=== PATIENT | male | born 1975 | race Caucasian/White ===

== ENCOUNTER 2019-03-22 23:15 | Emergency (ER) | payer BC ==
[2019-03-22 23:55] VITALS: BP 110/62
== END 2019-03-23 00:01 | disposition left against medical advice (07) ==
LOC: ER 23:15
DX: Z53.21 Procedure and treatment not carried out due to patient leaving prior to being seen by health care provider (principal)

== ENCOUNTER 2020-08-02 10:59 | Emergency (ER) | payer SELFPAY ==
--- NOTE | 2020-08-02 12:03 | ER Document Report ---
ED Medical Screen (RME) - General Chief Complaint: Upper Abdominal Pain Stated Complaint: ABDOMIAL PAIN Time Seen by Provider: 08/02/20 11:59 Primary Care Provider: REY PAUL MD [Primary Care Provider] - Follow up as needed Mode of Arrival: Ambulatory Information source: Patient Notes: 45-year-old male presented to ED for upper abdominal pain just above the umbilicus he states it started about 3 AM this morning. He states that the pain comes in waves. He states when the pain is bad he cannot even get up. He states he wanted to check the mail this morning and the wave hit him and he could not even get up off the ground to come back in the house until the way fast. He states he started to get another wave of pain right now. We will get blood urine and have him seen by a provider. I will also get a belly x-ray until they determine if they need a CAT scan. Denies any nausea at this time. Abdomen soft nontender to palpation pelvis sounds active I have greeted and performed a rapid initial assessment of this patient. A comprehensive ED assessment and evaluation of the patient, analysis of test results and completion of medical decision making process will be conducted by an additional ED providers. TRAVEL OUTSIDE OF THE [place] IN LAST 30 DAYS: No - Related Data Allergies/Adverse Reactions: No Known Allergies Allergy (Verified 03/22/19 23:50) Past Medical History Past Surgical History: Reports: Hx Orthopedic Surgery - Immunizations Hx Diphtheria, Pertussis, Tetanus Vaccination: Yes Physical Exam - Vital signs Vitals: Temp Pulse Resp BP Pulse Ox 98.2 F 93 18 135/77 H 100 08/02/20 11:37 08/02/20 11:37 08/02/20 11:37 08/02/20 11:37 08/02/20 11:37 Course - Vital Signs Vital signs: Temp Pulse Resp BP Pulse Ox 98.2 F 93 18 135/77 H 100 08/02/20 11:37 08/02/20 11:37 08/02/20 11:37 08/02/20 11:37 08/02/20 11:37 Doctor's Discharge - Discharge Referrals: REY PAUL MD [Primary Care Provider] - Follow up as needed
[2020-08-02 12:40] LABS: ABSOLUTE LYMPHOCYTES (AUTO) 0.8 10^3/uL (0.5-4.7); ABSOLUTE MONOCYTES (AUTO) 0.6 10^3/uL (0.1-1.4); ABSOLUTE NEUT (AUTO) 7.6 10^3/uL (1.7-8.2); BASOPHILS % (AUTO) 0.4 % (0-2); EOSINOPHILS % (AUTO) 0.1 % (0-6); HEMATOCRIT 44.2 % (37.9-51.0); HEMOGLOBIN 15.1 g/dL (13.5-17.0); LYMPHOCYTES % (AUTO) 9.2 % (13-45); MEAN CORPUSCULAR HEMOGLOBIN 32.2 pg (27.0-33.4); MEAN CORPUSCULAR HGB CONC 34.3 g/dL (32.0-36.0); MEAN CORPUSCULAR VOLUME 94 fl (80-97); MONOCYTES % (AUTO) 6.8 % (3-13); PLATELET COUNT 196 10^3/uL (150-450); SEGMENTED NEUTROPHILS % (AUTO) 83.5 % (42-78); TOTAL CELLS COUNTED % (AUTO) 100 %; WHITE BLOOD COUNT 9.1 10^3/uL (4.0-10.5)
[2020-08-02 12:45] LABS: APPEARANCE,URINE CLEAR; BILIRUBIN,URINE NEGATIVE (NEGATIVE); COLOR,URINE YELLOW; GLUCOSE, URINE NEGATIVE (NEGATIVE); KETONES,URINE NEGATIVE (NEGATIVE); LEUKOCYTE ESTERASE,URINE NEGATIVE (NEGATIVE); NITRITE,URINE NEGATIVE (NEGATIVE); PROTEIN,URINE NEGATIVE (NEGATIVE); URINE SPECIFIC GRAVITY 1.018; UROBILINOGEN,URINE NEGATIVE mg/dL (<2.0)
[2020-08-02 12:59] LABS: ALBUMIN 4.4 g/dL (3.5-5.0); ALKALINE PHOSPHATASE 39 U/L (38-126); ANION GAP 7 (5-19); ASPARTATE AMINO TRANSFERASE 21 U/L (17-59); BILIRUBIN,DIRECT 0.1 mg/dL (0.0-0.4); BILIRUBIN,TOTAL 0.4 mg/dL (0.2-1.3); BLOOD UREA NITROGEN 14 mg/dL (7-20); CALCIUM 9.3 mg/dL (8.4-10.2); CARBON DIOXIDE 28 mmol/L (22-30); CHLORIDE 103 mmol/L (98-107); GLUCOSE 99 mg/dL (75-110); POTASSIUM 3.9 mmol/L (3.6-5.0); TOTAL PROTEIN 7.2 g/dL (6.3-8.2)
--- NOTE | 2020-08-02 13:09 | RADIOLOGY REPORT (SQ) ---
EXAM DESCRIPTION: ACUTE ABDOMEN SERIES IMAGES COMPLETED DATE/TIME: 08/02/2020 12:53 pm REASON FOR STUDY: Intermittent upper abdominal pain COMPARISON: None. NUMBER OF VIEWS: Three views. TECHNIQUE: A PA view of the chest and AP supine and upright views of the abdomen were obtained. LIMITATIONS: None. FINDINGS: CHEST: The cardiomediastinal silhouette and pulmonary vasculature are within normal limits . There is no consolidation, pleural effusion or pneumothorax. FREE AIR: None. BOWEL GAS PATTERN: No dilated loops of bowel or differential air fluid levels. CALCIFICATIONS: No calcifications projecting within the renal fossae or along the expected course of the ureters. HARDWARE: None in the abdomen. SOFT TISSUES: No acute abnormality. BONES: No acute abnormality. OTHER: No other findings. IMPRESSION: 1. No acute cardiopulmonary process. 2. Nonobstructive bowel gas pattern. TECHNICAL DOCUMENTATION: JOB ID: [id number] 2010 [employer]- All Rights Reserved Reading location - IP/workstation name: [email or web address]
[2020-08-02] MEDS ORDERED: NORMAL SALINE 1000 ML 1,000 ML IV ONE ×2 (16:27→19:41)
--- NOTE | 2020-08-02 16:45 | ER Document Report ---
ED General - General Chief Complaint: Upper Abdominal Pain Stated Complaint: ABDOMIAL PAIN Time Seen by Provider: 08/02/20 11:59 Primary Care Provider: REY PAUL MD [NO LOCAL MD] - Follow up as needed Mode of Arrival: Ambulatory Notes: CHIEF COMPLAINT: Abdominal pain today HPI: 45-year-old male who appears older than stated age presenting for evaluation of periumbilical abdominal pain that began this morning. Patient has had intermittent cramping in the periumbilical region one episode of diarrhea no nausea vomiting or fever. Denies penile or testicular pain denies dysuria. Pain seems to come and go, states there are point in time or he has no discomfort until he walks or has someone press on his abdomen ROS: See HPI - all other systems were reviewed and are otherwise negative Constitutional: no fever Eyes: no drainage, no blurred vision ENT: no runny nose, no sore throat Cardiovascular: no chest pain Resp: no SOB, no cough GI: no vomiting, + diarrhea, + abdominal pain : no dysuria Integumentary: no rash Allergy: no hives Musculoskeletal: no extremity pain or swelling Neurological: no numbness/tingling, no weakness MEDICATIONS: I agree with the patient medications as charted by the RN. ALLERGIES: I agree with the allergies as charted by the RN. PAST MEDICAL HISTORY/PAST SURGICAL HISTORY: Reviewed and agree as charted by RN. SOCIAL HISTORY: Reviewed and agree as charted by RN. FAMILY HISTORY: No significant familial comorbid conditions directly related to patient complaint EXAM: Reviewed vital signs as charted by RN. CONSTITUTIONAL: Alert and oriented and responds appropriately to questions. Well-appearing; well-nourished HEAD: Normocephalic; atraumatic EYES: PERRL; Conjunctivae clear, sclerae non-icteric ENT: normal nose; no rhinorrhea; moist mucous membranes; pharynx without lesions noted, no uvula edema or deviation, no tonsillar hypertrophy, phonation normal NECK: Supple without meningismus; non-tender; no cervical lymphadenopathy, no masses CARD: RRR; no murmurs, no clicks, no rubs, no gallops; symmetric distal pulses RESP: Normal chest excursion without splinting or tachypnea; breath sounds clear and equal bilaterally; no wheezes, no rhonchi, no rales, pulse oximetry 98% on room air not hypoxic ABD/GI: Normal bowel sounds; non-distended; soft, positive Rovsing, there is tenderness in the periumbilical and right lower quadrant region on palpation, no rebound, no guarding; no palpable organomegaly or masses. BACK: The back appears normal and is non-tender to palpation, there is no CVA tenderness EXT: Normal ROM in all joints; non-tender to palpation; no cyanosis, no effusions, no edema SKIN: Normal color for age and race; warm; dry; good turgor; no acute lesions noted NEURO: Moves all extremities equally; Motor and sensory function intact PSYCH: The patient's mood and manner are appropriate. Grooming and personal hygiene are appropriate. MDM: 45-year-old male with periumbilical abdominal pain fairly constant throughout the day started around 3 AM. No fever. Initial screening labs obtained in the triage process negative for acute findings. Will obtain CT imaging to evaluate for appendicitis or diverticulitis TRAVEL OUTSIDE OF THE [place] IN LAST 30 DAYS: No - Related Data Allergies/Adverse Reactions: No Known Allergies Allergy (Verified 03/22/19 23:50) Past Medical History - General Information source: Patient - Social History Smoking Status: Current Every Day Smoker Family History: Reviewed & Not Pertinent Past Surgical History: Reports: Hx Orthopedic Surgery - Immunizations Hx Diphtheria, Pertussis, Tetanus Vaccination: Yes Physical Exam - Vital signs Vitals: Temp Pulse Resp BP Pulse Ox 98.2 F 93 18 135/77 H 100 08/02/20 11:37 08/02/20 11:37 08/02/20 11:37 08/02/20 11:37 08/02/20 11:37 Course - Re-evaluation Re-evalutation: 08/02/20 19:[address] Raza about the patient. CT shows pericecal inflammatory changes. He will look at the CT request patient remain n.p.o. He wishes patient to be moved to a different area from the Covid section, I spoke with the charge nurse about this. He requests a rapid Covid. I spoke with the patient about this he is in agreement 08/02/20 20:16 Dr. Raza has evaluated the patient. He feels the patient can go home. States that he gave patient return instructions. Patient is in agreement with this plan and does not want any pain medications or antibiotics for home - Vital Signs Vital signs: Temp Pulse Resp BP Pulse Ox 98.5 F 72 18 132/75 H 97 08/02/20 17:29 08/02/20 17:29 08/02/20 17:29 08/02/20 17:29 08/02/20 17:29 - Laboratory Result Diagrams: 08/02/20 12:18 08/02/20 12:18 Laboratory results interpreted by me: 08/02/20 12:18 Lymph % (Auto) 9.2 L Seg Neutrophils % 83.5 H Discharge - Discharge Clinical Impression: Abdominal pain, RLQ Condition: Stable Disposition: HOME, SELF-CARE Unit Admitted: ICU Additional Instructions: Follow-up with surgery clinic for further evaluation and treatment call for appointment. If you have onset of fever greater than 101, worsening abdominal pain return for reevaluation as discussed Referrals: REY PAUL MD [NO LOCAL MD] - Follow up as needed VAL RAZA MD [ACTIVE STAFF] - Follow up as needed
[2020-08-02 17:30] VITALS: BP 132/75
--- NOTE | 2020-08-02 18:54 | RADIOLOGY REPORT (SQ) ---
EXAM DESCRIPTION: CT ABD/PELVIS WITH IV ORAL IMAGES COMPLETED DATE/TIME: 08/02/2020 6:39 pm REASON FOR STUDY: periumbilical pain COMPARISON: None. TECHNIQUE: CT scan of the abdomen and pelvis performed using helical scanning technique with dynamic intravenous contrast injection. Oral contrast. Images reviewed with lung, soft tissue, and bone win dows. Reconstructed coronal and sagittal MPR images reviewed. Delayed images for evaluation of the ur inary system also acquired. All images stored on PACS. All CT scanners at this facility use dose modulation, iterative reconstruction, and/or weight based d osing when appropriate to reduce radiation dose to as low as reasonably achievable (ALARA). [facility]: Dose Right [facility]: CareDose [facility]: Dose Right [facility]: Teradose 4D [facility]: Time Solutions CONTRAST TYPE AND DOSE: contrast/concentration: Isovue 350.00 mmol/ml; Total Contrast Delivered: 100 .0 ml; Total Saline Delivered: 44.4 ml RENAL FUNCTION: BUN 14 creatinine 0.9 RADIATION DOSE: CT Rad equipment meets quality standard of care and radiation dose reduction techniq ues were employed. CTDIvol: 4.8 - 5.4 mGy. DLP: 548 mGy-cm.. LIMITATIONS: None. FINDINGS: LOWER CHEST: No significant findings. No nodules or infiltrates. LIVER: Normal size. No masses. No dilated ducts. SPLEEN: Normal size. No focal lesions. PANCREAS: No masses. No significant calcifications. No adjacent inflammation or peripancreatic fluid collections. Pancreatic duct not dilated. GALLBLADDER: No identified stones by CT criteria. No inflammatory changes to suggest cholecystitis. ADRENAL GLANDS: No significant masses or asymmetry. RIGHT KIDNEY AND URETER: No solid masses. No significant calcifications. No hydronephrosis or hyd roureter. LEFT KIDNEY AND URETER: No solid masses. No significant calcifications. No hydronephrosis or hydr oureter. AORTA AND VESSELS: No aneurysm. No dissection. Renal arteries, SMA, celiac without stenosis. RETROPERITONEUM: No retroperitoneal adenopathy, hemorrhage or masses. BOWEL AND PERITONEAL CAVITY: Cannot exclude mucosal thickening versus retained stool in the cecum. APPENDIX: Not identified. Cannot exclude pericecal inflammatory changes. PELVIS: No mass. No free fluid. Normal bladder. ABDOMINAL WALL: No masses. No hernias. BONES: No significant or acute findings. OTHER: No other significant finding. IMPRESSION: Cannot exclude pericecal inflammatory changes. The appendix is not identified. Cannot exclude mucosal thickening versus retained stool in the cecum. TECHNICAL DOCUMENTATION: JOB ID: [id number] Quality ID # [id number]: Final reports with documentation of one or more dose reduction techniques (e.g., Au tomated exposure control, adjustment of the mA and/or kV according to patient size, use of iterative reconstruction technique) 2010 [employer]- All Rights Reserved Reading location - IP/workstation name: [email or web address]
[2020-08-02] MEDS ORDERED: MORPHINE SULFATE 10 MG/ML INJ IV ONE (19:42)
[2020-08-02] MEDS ORDERED: ONDANSETRON HCL INJ/PF 4 MG/2 ML SDV IV ONE (19:42)
--- NOTE | 2020-08-02 20:32 | PDOC CONSULTATION ---
Consultation Consult Date: 08/02/20 Attending physician:: MAX DRAPER Provider Consulted: VAL MEJÍA Consult reason:: abdominal pain History of Present Illness Admission Date/PCP: NO LOCALMD History of Present Illness: LOVE GILLESPIE is a 45 year old male Presents emergency department via ground risk by acute onset abdominal pain this morning after drinking coffee. He was doubled over in pain. The pain was periumbilical and possibly radiating to the right side. Came to emergency department has been here for close to 9 hours. He was found to have some abdominal tenderness localized right lower quadrant, no elevation white blood cell count no fever. CT scan of the abdomen and pelvis with IV and oral contrast showed possible inflammatory changes involving the cecum. Surgery was consulted. Approximately 1 hour ago patient had a bowel movement with passage of gas and has since felt better. Patient denies history of trauma, previous GI problems, gastrointestinal diagnoses or previous colonoscopy. Past Surgical History Past Surgical History: Reports: Orthopedic Surgery Social History Information Source: Patient Smoking Status: Current Every Day Smoker Electronic Cigarette use?: No Frequency of Alcohol Use: Rare Hx Recreational Drug Use: No Family History Family History: None, Reviewed & Not Pertinent Parental Family History Reviewed: No Children Family History Reviewed: No Sibling(s) Family History Reviewed.: No Medication/Allergy Home Medications: Hydrocodone Bit/Acetaminophen [Vicodin 5-500 mg Tablet] 1 - 2 tab PO ASDIR PRN #15 tablet 05/05/13 Ibuprofen [Motrin 600 Mg Tablet] 600 mg PO TID #30 tablet 05/05/13 No Home Medications 1 05/05/13 Oxycodone HCl/Acetaminophen [Percocet 5-325 mg Tablet] 1 - 2 tab PO Q4H PRN #15 tablet 03/05/16 Allergies/Adverse Reactions: No Known Allergies Allergy (Verified 03/22/19 23:50) Review of Systems Constitutional: PRESENT: as per HPI Eyes: ABSENT: visual disturbances Ears: ABSENT: hearing changes Cardiovascular: ABSENT: chest pain, dyspnea on exertion, edema, orthropnea, palpitations Respiratory: ABSENT: cough, hemoptysis Gastrointestinal: PRESENT: as per HPI Genitourinary: ABSENT: dysuria, hematuria Musculoskeletal: ABSENT: joint swelling Integumentary: ABSENT: rash, wounds Psychiatric: ABSENT: anxiety, depression, homidical ideation, suicidal ideation Endocrine: ABSENT: cold intolerance, heat intolerance, polydipsia, polyuria Hematologic/Lymphatic: ABSENT: easy bleeding, easy bruising Physical Exam Vital Signs: Temp Pulse Resp BP Pulse Ox 98.5 F 72 18 132/75 H 97 08/02/20 17:29 08/02/20 17:29 08/02/20 17:29 08/02/20 17:29 08/02/20 17:29 Intake & Output 08/01/20 08/02/20 08/03/20 06:59 06:59 06:59 Intake Total 1000 Balance 1000 Weight 66.2 kg General appearance: PRESENT: no acute distress Head exam: PRESENT: normocephalic Eye exam: PRESENT: EOMI Teeth exam: PRESENT: dental caries Neck exam: PRESENT: full ROM Respiratory exam: PRESENT: rhonchi Cardiovascular exam: PRESENT: RRR Pulses: PRESENT: normal carotid pulses, normal radial pulses, normal femoral pulses GI/Abdominal exam: PRESENT: soft - Abdomen soft, nontender no peritoneal signs no rigidity. No umbilical hernia no groin hernias; no organomegaly Rectal exam: PRESENT: deferred Extremities exam: PRESENT: full ROM Musculoskeletal exam: PRESENT: full ROM Neurological exam: PRESENT: oriented to person, oriented to place, oriented to time, oriented to situation Psychiatric exam: PRESENT: appropriate affect Skin exam: PRESENT: dry Results Laboratory Results: 08/02/20 12:18 08/02/20 12:18 08/02/20 08/02/20 08/02/20 12:18 12:18 12:18 WBC 9.1 RBC 4.70 Hgb 15.1 Hct 44.2 MCV 94 MCH 32.2 MCHC 34.3 RDW 13.0 Plt Count 196 Seg Neutrophils % 83.5 H Sodium 137.9 Potassium 3.9 Chloride 103 Carbon Dioxide 28 Anion Gap 7 BUN 14 Creatinine 0.90 Est GFR ( Amer) > 60 Glucose 99 Calcium 9.3 Total Bilirubin 0.4 AST 21 Alkaline Phosphatase 39 Total Protein 7.2 Albumin 4.4 Lipase 60.2 Urine Color YELLOW Urine Appearance CLEAR Urine pH 5.0 Ur Specific [place]er 1.018 Urine Protein NEGATIVE Urine Glucose (UA) NEGATIVE Urine Ketones NEGATIVE Urine Blood NEGATIVE Urine Nitrite NEGATIVE Ur Leukocyte Esterase NEGATIVE Urine WBC (Auto) 0 Urine RBC (Auto) 2 Impressions: Abdomen/Pelvis CT 08/02/20 00:00 IMPRESSION: Cannot exclude pericecal inflammatory changes. The appendix is not identified. Cannot exclude mucosal thickening versus retained stool in the cecum. Acute Abdomen Series 08/02/20 12:03 IMPRESSION: 1. No acute cardiopulmonary process. 2. Nonobstructive bowel gas pattern. Assessment & Plan - Diagnosis (1) Abdominal pain, RLQ Is this a current diagnosis for this admission?: Yes Plan: IMPRESSION: Acute abdominal pain, now resolved. No evidence of sepsis or peritonitis. CT scan of the abdomen and pelvis reviewed thoroughly; no evidence of a fluid, mass, intussusception, bowel obstruction,, or chiquis inflammatory changes. Of note, patient reports no more abdominal pain, and had a bowel movement with gas Recommendations: 1. Explained to patient that I did not think he has an acute abdomen, nor surgical problem. We are delighted he is better; he may have had a cathartic effect from the oral CT contrast. 2. I believe the patient can be discharged home, on a diet and follow-up on a as needed basis. Should his abdominal pain return, he can see general surgeon surgical clinic, the emergency department. 3. I have discussed the above with the nursing staff and emergency department physician. (2) Smoker Is this a current diagnosis for this admission?: Yes - Time Time Spent: 30 to 50 Minutes Smoking Cessation Education: over 10 minutes Medications reviewed and adjusted accordingly: Yes Anticipated discharge: Home - Inpatient Certification Based on my medical assessment, after consideration of the patient's comorbidities, presenting symptoms, or acuity I expect that the services needed warrant INPATIENT care.: Yes I certify that my determination is in accordance with my understanding of Medicare's requirements for reasonable and necessary INPATIENT services [42 CFR 412.3e].: Yes
== END 2020-08-02 20:37 | disposition home or self-care (01) ==
LOC: ER 10:59
DX: R10.31 Right lower quadrant pain (principal); R10.10 Upper abdominal pain, unspecified; R10.33 Periumbilical pain; R19.7 Diarrhea, unspecified
CPT/HCPCS: 99285; 96360; 36415; 87086; 83690; 85025; 80053; 81001; 74022; 74177; J7030